=== PATIENT | female | born 1955 | race Caucasian/White ===

== ENCOUNTER → 2018-03-03 09:36 | Outpatient (CLI) | payer OTHER, SELFPAY ==
--- NOTE | 2018-03-03 | DI.RAD.S_ITS ---
PROCEDURE: XR HIP W PEL IF DONE RT 2V INDICATIONS: Pain in right hip TECHNIQUE: AP pelvis with lateral view of the right hip. COMPARISON: None. FINDINGS: Bones: No fractures or dislocations. There is mild axial joint space narrowing in the right hip with prominent bilateral periarticular subchondral sclerosis and cystic change. There is also prominent bilateral collar osteophytosis. Pelvic ring appears intact. No suspicious bony lesions. Soft tissues: The visualized bowel gas pattern is normal. No suspicious soft tissue calcifications. IMPRESSION: 1. Bilateral osteophytic changes with osteophytosis, subchondral sclerosis, and subchondral cystic changes with mild axial joint space narrowing in the right hip. Dictated by: Stephon Gonsalves M.D. on 03/03/2018 at 10:36 Approved by: Stephon Gonsalves M.D. on 03/03/2018 at 10:38
== END ==
PROVIDERS: Visit Provider Student in an Organized Health Care Education/Training Program
DX: M25.551 Pain in right hip (principal); M25.751 Osteophyte, right hip
CPT/HCPCS: 73502

== ENCOUNTER → 2019-07-02 14:05 | Outpatient (CLI) | payer MEDICARE, BC, SELFPAY | PROVIDERS: PCP Student in an Organized Health Care Education/Training Program; Referring Provider Orthopaedic Surgery; Visit Provider Student in an Organized Health Care Education/Training Program | DX: Z78.0 Asymptomatic menopausal state (principal) | CPT/HCPCS: 77080 ==

== ENCOUNTER → 2019-07-09 10:45 | Outpatient (CLI) | payer MEDICARE, BC, SELFPAY ==
--- NOTE | 2019-07-09 | DI.MG.S_ITS ---
BILATERAL DIGITAL SCREENING MAMMOGRAM 3D/2D WITH CAD: 07/09/2019 CLINICAL: Routine screening. Comparison is made to exams dated: 07/10/2017 mammogram, 01/13/2014 mammogram, and 05/27/2012 mammogram - Merged With [facility]. There are scattered fibroglandular elements in both breasts. Current study was also evaluated with a Computer Aided Detection (CAD) system. No significant masses, calcifications, or other findings are seen in either breast. There has been no significant interval change. IMPRESSION: NEGATIVE There is no mammographic evidence of malignancy. A 1 year screening mammogram is recommended. This exam was interpreted at Station ID: [id number]. NOTE: For mammograms, a report in lay terms will be sent to the patient. Approximately 15% of breast malignancies will not be visualized mammographically. In the management of a palpable breast mass, a negative mammogram must not discourage biopsy of a clinically suspicious lesion. Electronically Signed By: Althea willis/em:07/09/2019 14:52:11 letter sent: Normal Exam ACR BI-RADS Category 1: Negative [id number]
== END ==
PROVIDERS: PCP Student in an Organized Health Care Education/Training Program; Visit Provider Student in an Organized Health Care Education/Training Program
DX: Z12.31 Encounter for screening mammogram for malignant neoplasm of breast (principal)
CPT/HCPCS: 77063; 77067

== ENCOUNTER 2019-07-29 06:06 | Inpatient (IN) | payer MEDICARE, BC, SELFPAY ==
[2019-07-09 13:48] VITALS: BMI 25.6
[2019-07-29] VITALS (14 sets, daily range): BP systolic 103–147; BP diastolic 55–85; PULSE 45–88; RESP 10–19; TEMP 35.7–36.8; O2SAT 92–99; BMI 26.1
--- NOTE | 2019-07-29 | DI.RAD.S_ITS ---
PROCEDURE: XR HIP W PEL IF DONE RT 4V INDICATIONS: ANTERIOR HIP TECHNIQUE: 2 view(s) of the hip acquired. COMPARISON: , CR, XR HIP W PEL IF DONE RT 2V, 03/03/2018, 9:22. FINDINGS: Bones: Patient is status post right hip arthroplasty, with hardware components in expected positions. The hip joint appears congruent. The visualized bony structures appear intact. Soft tissues: Overlying postoperative changes are noted. No suspicious soft tissue densities. IMPRESSION: Normal alignment after right total hip arthroplasty. Dictated by: Abdulkadir Hazel M.D. on 07/29/2019 at 11:19 Approved by: Abdulkadir Hazel M.D. on 07/29/2019 at 11:19
--- NOTE | 2019-07-29 06:00 | DI.RAD.S_ITS ---
PROCEDURE: XR HIP W PEL IF DONE RT 2V INDICATIONS: post op films TECHNIQUE: AP pelvis and lateral view of the right hip acquired. COMPARISON: [facility], [place], XR HIP W PEL IF DONE RT 4V, 07/29/2019, 9:40. [facility], [place], XR HIP W PEL IF DONE RT 2V, 03/03/2018, 9:22. FINDINGS: Bones: Patient is status post right hip arthroplasty, with hardware components in expected positions. The hip joint appears congruent. The visualized bony structures appear intact. Soft tissues: Overlying postoperative changes are noted. No suspicious soft tissue densities. IMPRESSION: Normal alignment after right total arthroplasty. Dictated by: Abdulkadir Hazel M.D. on 07/29/2019 at 13:52 Approved by: Abdulkadir Hazel M.D. on 07/29/2019 at 13:53
[2019-07-29] MEDS: VANCOMYCIN 1,000 MG/200 ML PIGGYBACK 200 MG IV (07:08)
[2019-07-29] MEDS: LACTATED RINGERS 1,000 ML 42 ML IV ×2 (07:08→10:09)
[2019-07-29] MEDS: MELOXICAM 7.5 MG TABLET 15 MG PO (07:08)
[2019-07-29] MEDS: ACETAMINOPHEN 325 MG TABLET 975 MG PO ×3 (07:09→21:52)
[2019-07-29] MEDS: PREGABALIN 75 MG CAPSULE PO (07:09)
--- NOTE | 2019-07-29 07:45 | PM.PREOP ---
Pre-operative Note Interval Note History & Physical reviewed/Exam performed by Physician: Yes Changes to H&P: No
--- NOTE | 2019-07-29 07:46 | PM.OP.1 ---
Operative Date/Time/Diagnoses Date of procedure: 07/29/19 Time of procedure: 07:59 Pre-op diagnosis: right hip OA Post-op diagnosis: same Procedure & Clinicians Procedure: right total hip anterior approach Same procedure as scheduled: Yes Indications: The patient has had progressively worsening right hip pain with radiographic changes consistent with arthritis. Non-operative management has failed and the patient has requested total hip replacement. The risks, benefits and alternatives to surgery were discussed with the patient prior to proceeding. Risks discussed included, but were not limited to, failure to relieve pain, leg length discrepancy, dislocation, stiffness, infection, nerve damage, deep venous thrombosis, pulmonary embolism, stroke, coma, heart attack, permanent paralysis and , as well as the potential need for eventual revision of the prosthetic. Surgeon: Brenna Torres Gas Engine Operator Generators: Doug Mcarthur Anesthesia Type: General and Spinal Operative Notes Findings: severe right hip OA, good stability Closure Type: primary Specimen(s): none sent Prosthetic devices, grafts, tissues, transplants, or devices: torres and nephew 5 standard offset anthology, R3 56, 56 by -3 Estimated Blood Loss (mL): 250 Blood products transfused: none Procedure in detail: The patient was brought to the operating room. Patient was carefully positioned in the supine position. Time-out was performed and antibiotics were given. Anesthesia was induced. She was positioned in the on the table in order to allow hyperextension of the hip. The right lower extremity was prepped and draped in a standard sterile fashion. An anterior right hip incision was made 1 fingerbreadth lateral to the anterior superior iliac spine and extended distally towards the greater trochanter. Dissection was carried out through skin and subcutaneous tissues. The skin and subcutaneous tissues were carefully injected with Lidocaine with epi. Superficial hemostasis was achieved. The fascia over the tensor fascia leslye was defined and incised with a knife. Two Allis clamps were used to grasp the fascia. Tensor fascia leslye was retracted laterally. A gelpi retractor was placed. Dissection was carried out down along the neck. The circumflex vessels were carefully identified and cauterized with the Aqua Mantis. There was good visualization of the femoral neck. A Cobra was placed superior to the neck and the gluteus fibers were carefully stripped from that superior aspect of the capsule. A 2nd retractor was placed along the inferior aspect of the neck. The rectus insertion along the capsule was partially released. A 3rd retractor that was then gently placed over the rim of the acetabulum under the rectus. Capsule was carefully incised and released from the intertrochanteric line circumferentially superior to the mid sagittal line and inferiorly to the mid sagittal line until the lesser trochanter was palpable. A tag stitch was placed both in the superior and inferior limb of the capsular insertion. Along the acetabulum capsule was also released up to the mid sagittal 12:00 position. A portion of the labrum was resected. A saw was used to perform an osteotomy at the level of the intertrochanteric line and the junction of the superior femoral neck leaving approximately 1 finger breath of residual inferior neck above the lesser trochanter. A 2nd cut was made along the femoral neck at the base of the head and a napkin ring of neck was removed. Corkscrew was placed in the femoral head and the head was removed without difficulty. Retractors were then repositioned around the acetabulum. Residual labrum was resected and additional osteophytes were removed. A reamer that was 4 mm below the templated size was placed by hand in the acetabulum and it was reamed to centralize the acetabulum. It was then reamed up to 2 under the templated size and fluoroscopy was brought in to confirm the position of the reaming and depth of reaming. I reamed 1 under the anticipated size and touched the rim with line to line reaming. A trial cup was placed and noted that it was appropriately sized and fluoroscopy confirmed position and depth. The component was open and inserted without difficulty fluoroscopic imaging was used to confirm that the cup had been adequately seated and was well positioned. Neutral poly trial liner was placed. The cup was tested and noted to be stable. Attention was then directed to the femur. The femur was gently hyperextended additional capsular release was performed as needed in order to allow adequate visualization of the proximal femur with elevation of the femur. Patient was placed in a hyperextended slightly adducted position with maximum external rotation. Box osteotome was used to check for any residual neck as well as sclerotic bone along the trochanter. [place] pepper was placed in the femur. Additional broaching was performed. Canal finder was used to determine the alignment of the canal and position. Size 1 broach was placed. The canal was then appropriately broached up to the templated size as long as there was adequate stability of the broach and serial advancement of the broach without excessive impingement. Specific attention was directed at avoiding varus attempting to direct the distal aspect of the broach more anteriorly and avoiding excessive anteversion. Trial reduction showed acceptable range of motion, good stability, no posterior impingement, methodist of leg length and appropriate lateral shuck. I also hyperflexed the hip and checked that there was no impingement anteriorly and there was good stability with flexion, adduction and internal rotation. Final neutral poly was placed without difficulty. Marcaine and Exparel were injected.. The stem was placed without difficulty. Repeat trial reduction and x-ray showed acceptable overall position, length, and no evidence of the femoral fracture. Final head was placed. Wound was meticulously irrigated with normal saline. The hip was reduced and additional Exparel and Marcaine were injected. The capsule was closed with interrupted nonabsorbable sutures. The fascia of the tensor was closed with interrupted and running Vicryl. No drain was placed. Any tensor fascia leslye muscle that appeared to be contused or injured which was a minimal amount was carefully resected. Capsule around the tensor was injected with Exparel and Marcaine. The skin was closed with barbed stitches for the subcutaneous tissue and skin. We also used surgical glue. The wound was dressed sterilely. Brief Betadine soak was also used and was meticulously irrigated with normal saline. Patient was transferred to recovery room in satisfactory condition. Complications: none Post-operative Condition: stable Disposition: Acute Care Plan for aftercare: The patient will be maintained on a standard total hip replacement protocol with weight bearing as tolerated and anterior hip precautions. The patient will receive Aspirin and sequential compression devices for DVT prophylaxis. The patient will be discharged home when safe for the home environment.
[2019-07-29] MEDS: CEFAZOLIN 2 GM/100 ML FROZ.PIGGY IV ×3 (08:06→23:51)
[2019-07-29] MEDS: TRANEXAMIC ACID 1,000 MG VIAL 1000 MG INJ ×2 (08:08→11:00)
--- NOTE | 2019-07-29 08:39 | SUR.OPER ---
Head on pillow. Supine on fracture table with operative leg secured in traction. Other leg secured in padded stirrup. Arms across chest, secured with sheet.
[2019-07-29] MEDS: SODIUM CHLORIDE IRRIG SOLUTION 250 ML, EPINEPHrine 1 MG IRR (08:44)
[2019-07-29] MEDS: BUPIVACAINE LIPOSOME 266 MG/20 ML VIAL INJ (08:45)
[2019-07-29] MEDS: BUPIVACAINE 0.25% W/ EPI 30 ML VIAL 60 ML INJ (08:45)
[2019-07-29] MEDS: SODIUM CHLORIDE IRRIG SOLUTION 250 ML, POVIDONE-IODINE SPONGE STICKS 1 APPLIC IRR (08:46)
[2019-07-29] MEDS: LORazepam 2 MG/ML INJ 0.25 MG IV ×2 (11:55→12:06)
[2019-07-29] MEDS: fentaNYL 100 MCG/2 ML INJ 50 MCG IV ×2 (11:55→12:00)
--- NOTE | 2019-07-29 13:03 | SUR.OPER ---
Supine, head on pillow, torso on pink pad positioner. Iliac crest at flex of foot end of table. Gel roll under operative hip. Both arms secured on arm boards <90 degrees abduction. DELETE PREVIOUS NOTE, ENTERED WRONG POSITION
[2019-07-29] MEDS: LACTATED RINGERS 1,000 ML 125 ML IV ×2 (13:15→21:53)
--- NOTE | 2019-07-29 13:28 | PC.NURSE ---
1250 Pt arrived from PACU via bed. SL L AC, O2 2L nc on. Pt is awake, slightly sleepy. OX3, VS WNL. SCDs on BLE. 1330 Pt remains sleepy, Spouse at bedside. VS WNL, LR at 125 hr infusing. Pt able to move all extremities. Aquacel to ant hip surg site CDI. Ice to site.
--- NOTE | 2019-07-29 14:33 | PC.NURSE ---
1330 pt arrived to room 205 via stretcher from ED. Pt a&o x 4. Spouse at bedside. Denies allergies. SL to L fa. O2 1.5 Lnc. Pt states had a temp of 104.0 via ear probe at home this AM. Spouse marked the reddedned area on left side abd/thigh. 1430 Dr Frausto in to examine Pt.
--- NOTE | 2019-07-29 15:48 | PT.IIE ---
Current Diagnoses Bilateral primary osteoarthritis of hip (07/29/19) Pain in right hip (07/29/19) Surgery Performed Operation Date: 07/29/19 07:45 Actual Procedures p Total Hip Arthroplasty/Anterior Approach(Right) - Brenna Vargas MD Surgical History (Last Updated 07/09/19 @ 14:43 by Melissa Lawson, RN) History of colonoscopy with polypectomy (Acute) History of surgical removal of pilonidal cyst (Acute) Hx of sinus surgery (Acute) S/P tonsillectomy and adenoidectomy (Acute) Medical History (Last Updated 07/09/19 @ 14:43 by Melissa Lawson RN) Anxiety (Acute) Back pain (Acute) BCC (basal cell carcinoma), chest (Acute ~03/2019) Bronchitis (Acute) Functional heart murmur (Acute) Hidradenitis suppurativa (Acute) HLD (hyperlipidemia) (Acute) Lentigo maligna (Acute ~2002) Melanoma (Acute ~12/2018) Migraines (Acute) Osteoarthritis (Acute) Retinal tear of right eye (Acute) Physical Therapy Inpatient Evaluation/Re-Eval M1 PT/OT-IP Prior Functional Status Start: 07/29/19 14:21 Freq: NEEDED Status: Active Protocol: Document 07/29/19 15:16 AW (Rec: 07/29/19 15:48 AW [id number]) Medical Review Prior Functional Status Medical History Reviewed Yes Diet/Fluid Consistency Regular Communication Able to make needs known, no known deficits Mobility and Gait Pt was independent with all functional mobility without need for AD. She was able to walk 1-2 miles/day on paved surfaces. Activities of Daily Living and IADL's Independent, though occasionally required assistance to don shoes. Social History Household Members spouse Living Arrangements House Number of Floors (Floors) 3 or More Floors Number of Stairs To Enter/Railing? 0 [place]. Pt is able to live on the main floor until able to climb stairs. There are 16 stairs with left rail ascending to the second floor. Home Environment Standard Height Toilet,Walk in Shower,Tub/Shower Home Equipment Front Wheel Walker,Quad Cane, Straight Cane,Crutches,Raised Toilet Seat w/Armrests,Shower Seat with Backrest,Hand Held Shower Employment Status Retired Additional Social History Comment Pt and spouse are both retired . is able and available to assist as needed. M2 PT-IP Current Condition Start: 07/29/19 14:21 Freq: NEEDED Status: Active Protocol: Document 07/29/19 15:16 AW (Rec: 07/29/19 15:48 AW [id number]) Physical Therapy Current Condition Current Condition Evaluation Date 07/29/19 Treatment Diagnosis s/p R BRODIE with anterior approach, impaired mobility Precautions Anterior Hip Precautions No Hip Extension,No Hip External Rotation Weight Bearing Status Weight Bearing Status Weight Bear as Tolerated M3 PT-IP Subjective Start: 07/29/19 14:21 Freq: NEEDED Status: Active Protocol: Document 07/29/19 15:16 AW (Rec: 07/29/19 15:48 AW [id number]) Subjective Physical Therapy Visit Type Type Initial Evaluation Visit Start Time 14:42 Visit Stop Time 15:14 Total Visit Minutes 32 Number of PARTS ORDER AND STOCK CLERK Visits 0 Physical Therapy Visit Comments Patient Comments Pt is very sleepy but willing to work with PT Patient Goals Pt hopes to discharge home with the assistance of her spouse Therapy Pain Assessment Pain When Pain Assessed At Rest Pain Present Pain Present Pain Reported Location r hip Intensity 5 Scale Used Numeric (1 - 10) Pain Management Techniques Apply Cold,Re-positioning, Timing of Activity with Medications M4 PT-IP Mobility and Gait Start: 07/29/19 14:21 Freq: NEEDED Status: Active Protocol: Document 07/29/19 15:16 AW (Rec: 07/29/19 15:48 AW [id number]) PT-Bed Mobility Assessment Rolling Type of Rolling Roll to Right Level of Assist Contact Guard Assistance Supine to Sit Supine to Sit Contact Guard Assistance, Minimal Assistance Sit to Supine Sit to Supine Minimal Assistance Scooting Scooting to Edge of Bed Contact Guard Assistance PT-Transfer Assessment Sit to and From Stand Sit to and from Stand Contact Guard Assistance, Minimal Assistance Equipment Transfer Assistive Device Gait Belt,Front Wheeled Walker Orthotic/Prosthetic Devices or Brace: No Comments Mobility Comments Pt required CGA to min assist for bed mobility and sit <> stand transfer, including verbal cues for hand placement /safe use of FWW. BP in sitting was 122/70. Pt complained of increased lightheadedness and nausea in standing. BP was 101/67. Symptoms did not resolve after 1 minute standing, so pt was returned to supine with min assist. BP recovered to 120/70 within 2 minutes. Pt left in bed with NAC, call light and table within reach, at bedside. PT-Balance Assessment Sitting Balance and Reactions Static Sitting Balance Ability Good Dynamic Sitting Balance Ability Good Standing Balance and Reactions Static Standing Balance Ability Fair Device Used FWW M5 PT-IP Objective Assessments Start: 07/29/19 14:21 Freq: NEEDED Status: Active Protocol: Document 07/29/19 15:16 AW (Rec: 07/29/19 15:48 AW [id number]) Orientation Orientation/Cognition Level of Alertness Confusional State Orientation Name,Month,Place,Situation Language Function Ability No Deficits Noted Safety Awareness Understands Safety Issues Memory Description No Deficits Noted Comments Pt oriented except to date. She is an accurate historian, with spouse validating her responses. Gross Range of Motion Upper Extremity ROM Assessment Within Functional Limits Lower Extremity ROM Assessment Right Impaired Strength Upper Extremity Strength Assessment Within Functional Limits Lower Extremity Strength Assessment Right Impaired Comments Strength Comments Pt able to lift right leg into bed. No resistive testing undertaken on RLE. LLE grossly 4+/5. Coordination Assessment Gross Coordination Gross Coordination WNL Sensation Assessment Sensation Gross Sensation WNL Comments Sensation Comments No deficits on exam M6 PT-IP Treatment Start: 07/29/19 14:21 Freq: NEEDED Status: Active Protocol: Document 07/29/19 15:16 AW (Rec: 07/29/19 15:48 AW [id number]) Physical Therapy Treatment Exercises Exercises Ankle Pumps,Gluteal Sets,Quad Sets,Heel Slides Education Education Provided Precautions,Weight Bearing Status,Post-Op Packet,Safety Other Treatments Other Treatment Performed Heel slides performed passively. Educated pt on PT plan of care, post-op exercises, anterior hip precautions, and safe use of FWW. M7 PT-IP Assessment and Plan Start: 07/29/19 14:21 Freq: NEEDED Status: Active Protocol: Document 07/29/19 15:16 AW (Rec: 07/29/19 15:48 AW [id number]) PT Summary Assessment and Plan Potential Rehabilitation Potential Good Status of Condition at Evaluation Evolving Summary Impairments Pain,Strength,Balance,Bed Mobility,Transfers,Gait, Activity Tolerance Assessment Summary Pt is a 64 yo woman seen on POD0 following R BRODIE with anterior approach. PLOF: Independent in all regards. Shares home with spouse who is also retired and available to assist. CLOF: Pt seen hours after surgery, very sleepy and with pain 5/10 in right hip. She tolerated bed mobility and needed min assist at most for bed mobility and sit to stand . She became diaphoretic in standing, complaining of lightheadedness and nausea. SpO2 was maintained 90-95% on 1L supplemental O2 via NC. SBP dropped 21 points in standing . Symptoms did not resolve within a few minutes, so pt was returned to supine and left with NAC, spouse at bedside, call light and table within reach. Goals Bed Mobility Goal Standby Assistance Transfer Goal Standby Assistance Gait Goal Standby Assistance Gait Distance 100 feet Frequency of Treatment Frequency Of Treatment Twice a Day Treatment Plan Physical Therapy Treatment Plan Bed Mobility Training,Transfer Training,Gait Training, Therapeutic Exercise,Balance Retraining,Post Op Education, Discharge Planning,Hot or Cold Pack,Neuromuscular Re-ed, Coordination Retraining,Manual Therapy Other Recommendations and Next Treatment gait training. monitor BP Focus Recommendations To Nursing Amount of Assist Needed 1 Person Assist Discharge Recommendations PT Discharge Recommendations Home with / Assist, Outpatient PT
[2019-07-29] MEDS: ONDANSETRON 4 MG/2 ML INJ IV (17:08)
[2019-07-29] MEDS: OXYCODONE IR 5 MG TABLET PO ×2 (17:09→23:51)
[2019-07-29] MEDS: ASPIRIN EC 81 MG TABLET PO (21:52)
[2019-07-29] MEDS: DOCUSATE 100 MG CAPSULE PO (21:52)
[2019-07-29] MEDS: IBUPROFEN 400 MG TABLET PO (21:52)
--- NOTE | 2019-07-29 22:44 | PC.NURSE ---
93%RA, pt ambulated, 1PA to the BR. Dressing cdi, CMS+. scds on. IVF. pt drinking plenty of fluids. voiding without difficulty. pain controlled with oxycodone and tylenol. call light in reach, bed alarm active.
[2019-07-29] MEDS: hydrOXYzine pamoate 25 MG CAPSULE PO (23:53)
[2019-07-30 01:02] VITALS: BP 134/79; PULSE 70; RESP 16; TEMP 36.8; O2SAT 96
[2019-07-30 05:15] VITALS: BP 133/78; PULSE 98; RESP 16; TEMP 36.6; O2SAT 95
[2019-07-30] MEDS: ACETAMINOPHEN 325 MG TABLET 975 MG PO (05:16)
[2019-07-30] MEDS: OXYCODONE IR 5 MG TABLET PO (05:17)
[2019-07-30 06:18] LABS: Hematocrit 34.6 % (36-46); Hemoglobin 11.8 g/dL (12.0-16.0)
--- NOTE | 2019-07-30 07:36 | PM.DS.1 ---
History of Present Illness History of Present Illness Date Patient Seen: 07/30/19 Time Patient Seen: 07:36 Chief complaint: [id number] Narrative: Patient's pain is mild to moderate. No fever chills. No nausea vomiting. Patient's is home to assist her. She does have steps in her house but will be staying down stairs until she can safely do steps at home. She does wish to go home today if safe to do so. Discharge Providers Provider Date of admission: 07/29/19 06:06 Discharge Date: 07/30/19 Primary care physician: Savannah Ortega PA-C Consults: 07/29/19 06:00 Consult to Anesthesiology Routine Comment: Consulting Provider: Anesthesiologist Reason for consultation: Regional block for post operative pain control 07/29/19 13:17 Consult to Discharge Planning Routine Comment: Consult to Physical Therapy Evaluate & Treat Comment: Physician Instructions: post op BRODIE protocol Consult to Respiratory Therapy Evaluate & Treat Comment: Physician Instructions: Evaluate and treat Discharge provider: Hao Gómez PA-C Summary Hospital Course Discharge Diagnosis: Status post right total hip arthroplasty secondary to severe right hip DJD Hospital Course: Patient admitted to the hospital for right total hip arthroplasty. Patient failed a long period of conservative treatment as outpatient. Patient admitted to the hospital and consented to the same. Patient taken the operating room underwent right total hip arthroplasty, anterior approach. Patient back in her room recovering well as in stable condition. Status at Discharge Cognitive/behavioral status at discharge: at baseline, oriented Functional status at discharge: uses cane/walker Overall status at discharge: patient is progressing back to baseline Time Spent with Patient Time spent: Less than 30 minutes Exam Vital Signs (past 8 hours): - 07/30/19 01:02 07/30/19 05:15 Temperature 98.2 F 97.9 F Pulse Rate 70 98 H Respiratory Rate 16 16 Blood Pressure 134/79 133/78 Pulse Oximetry 96 95 Oxygen Delivery Method Nasal Cannula Oxygen Flow Rate 0 Narrative Exam Narrative: Patient resting in bed in no apparent distress. Right hip dressing is clean, dry and intact. Right lower extremity is warm and dry. SCDs on and functioning. Motor functions intact distal right lower extremity. Sensation grossly intact to light touch. Objective Labs Result Diagrams: 07/30/19 05:50 Labs: Laboratory Results - last 24 hr 07/30/19 05:50 Hgb 11.8 L Hct 34.6 L Discharge Plan Discharge Plan Patient Disposition: Home Discharge comment: home after PT today Discharge Med Rec/Prescriptions Prescriptions: Continued alprazolam 0.25 mg Tablet 0.25 - 0.5 mg PO DAILY PRN (Reason: Anxiety) RF: 0 zolpidem 6.25 mg Tablet,Ext Release Multiphase 6.25 mg PO BEDTIME PRN (Reason: Sleep) RF: 0 Discontinued meloxicam 15 mg Tablet 15 mg PO DAILY PRN (Reason: Pain) RF: 0 ibuprofen 200 mg Tablet 400 mg PO BEDTIME RF: 0 Follow up/Referrals: Hao Gómez PA-C [[employer]] - (1 wk) Savannah Ortega PA-C [Primary Care Provider] - Provider Discharge Instructions Diet: Diet as Tolerated Activity: Weightbearing as tolerated, anterior hip precautions Cold/Heat Therapy: Apply ice to the hip as needed Other treatments: Ibuprofen 400 mg every 4 hours, Tylenol 500 mg every 4 hours, aspirin 81 mg b.i.d. Skin/Wound/Dressing Care Report to your healthcare provider any signs of infection, such as:: chills, fever, increased pain, unusual drainage and unusual redness Dressing: Keep dressing clean and dry Discharge Data Primary Care Provider: Savannah Ortega Quality VTE Deep Vein Thrombosis/Pulmonary Embolism Present on Admission: No
[2019-07-30 08:00] VITALS: BP 121/73; PULSE 59; RESP 14; TEMP 36.6; O2SAT 97
[2019-07-30] MEDS: ASPIRIN EC 81 MG TABLET PO (08:23)
[2019-07-30] MEDS: DOCUSATE 100 MG CAPSULE PO (08:23)
--- NOTE | 2019-07-30 09:22 | CM.DANOTE ---
DCP Assessment: EMR reviewed: Patient is a 64 yr old female who was admitted for Rt BRODIE preformed by . Patients PCP is Dr. Ortega. CM met with patient at bedside and explained CM/RN Role. patient was alert and oriented and is completely I with ADL's at base line. Patient would like to return home with Joaquín at d/c. patient has OP PT set up for next week wiht [facility].patient has a FWW and shower chair at home. Insurance: 1st payer: Medicare 2nd payer: [facility] out of [facility]. Plan: To d/c home with assistance form Joaquín and to attend OT PT twice a week starting on Sunday08/03/2019. No identified D/c planning needs noted at this time. Josefina Vargas RN Discharge Planning/Care Management Advanced directive, confirm from FAMILY Start: 07/29/19 13:38 Freq: Q24H Status: Active Protocol: Document 07/29/19 13:38 HCW (Rec: 07/29/19 18:41 HCW [id number]) Advance Directive, confirm on record Time 16:10 Person contacted patient Copy received No CM Discharge Assessment Start: 07/30/19 09:20 Freq: Status: Active Protocol: Document 07/30/19 09:20 HS (Rec: 07/30/19 09:21 HS [id number]) Discharge Planning Assessment Assigned Activities Concierge Josefina Vargas RN DPOA/Assigned Designee Name Joaquín Hall Contact Information [phone] Advance Directives? Yes Advance Directives on File No History Provided By Patient Has Patient been admitted in last 30 No days? Prior Living Arrangements House Household Members spouse Type of transporation used prior to Drives own vehicle admit Independent with ADL's Yes Is patient alert and oriented? Yes Caregiver for Another No Patient/Family Preference OP PT Therapy Discharge Plan Home Whiteboard Updated in Patient Room with Yes name and ext. # of Activities Concierge Review Status In Process Next Review Type Continued Stay Review Pre-Anesthesia Assessment Start: 07/09/19 13:48 Freq: Status: Active Protocol: Document 07/09/19 13:48 CAB (Rec: 07/09/19 14:44 CAB [id number]) Pre-Anesthesia Assessment Patient Also Known As (AKA) Janey Patient Information Reviewed Via Phone Assessment Assessment Completed With Patient Diagnostic Results BMP/CMP,CBC,EKG Comment Outside labs/EKG scanned to record Primary Care Provider Savannah Ortega Seen Specialist in Last 12 Months Yes Specialist Seen Oncology Consultant,General surgeon, Orthopedist Comment PCP pre-op 06/25/19 scanned to record Primary Language Andorran Superintendent Terminal Required No Height 165.1 cm Weight 69.853 kg Body Mass Index (BMI) 25.6 Hearing Ability Normal Visual Assist Glasses Dentition Type Teeth, Natural Present,Teeth, Missing Barriers to Learning None Hx Anesthesia Reactions Yes: Bradycardia w/colonoscopy Hx Family Anesthesia Reaction No Hx Malignant Hyperthermia No Hx Blood Transfusions No Anesthesia Review Requested No alcohol intake current alcohol intake frequency 0-2 drinks per day Smoking Status Former smoker Tobacco type cigarettes how long ago did patient quit smoking Quit for good 5 years Substance Use Type other Comment CBD Oil, edibles Pain Present Pain Reported Musculoskeletal Symptoms Abnormal Gait,Back Pain, Difficulty Walking,Joint Pain, Limited Range of Motion History of Falling (Recent or History of No ) Patient is completely paralyzed or No completely immobile Mental Status Oriented to own ability Is patient on oxygen? No Does patient have PINON/SOB No Hx Sleep Apnea No Currently Taking a Beta Valerie No Can You Climb a Flight of Stairs Without Yes SOB Hx Chest Pain No Hx SOB No Hx Syncope or Dizziness No Anti-Coagulant Therapy No Has a Emergency Communications Dispatcher No Cardiac Testing No Hx Pacemaker/ICD No Pacemaker Rep Required? No Cardiac Clearance Received Not Applicable Diet Type At Home Regular dysphagia No Urinary Catheter Present No Hx Urinary Self Catheterization No Diabetes No HgbA1C 5.1 Date 06/25/19 Patient No Lactating No Hx Drug Resistant Organism No Presence of External or Internal Medical No Devices Have you traveled outside the [facility] in the last 30 days? Marital Status Lives With spouse Prior Living Arrangements House Number of Floors (Floors) 3 or More Floors Support System Spouse Does the Patient Have Assistance After Yes Surgery Comment Pt not advised on length of stay per surgeon's office Feels Safe in Current Environment Yes Been Physically Hurt or Threatened By a No Person in Current Environment Do you have thoughts of harming yourself None or others? Are you currently considering suicide? No Do you have a plan to hurt yourself or No Plan others? Do You Have Any Spiritual Beliefs That No May Affect Your HC Choices? Do You Have Any Cultural Practices That No May Affect Your HC Choices? Comment Baptist Who Can We Speak to About Patient's Care Family, friends Identifying Code for Release of Patient Declines to issue Information Health Care Proxy/Next of Kin Joaquín () Health Care Proxy Emergency Contact Name Joaquín () Emergency Contact Advance Directives? Yes Advance Directives on File No Requested Patient Bring Advanced Yes Directives DOS Power of Manufacturing Test Engineer Yes Power of Manufacturing Test Engineer Name Joaquín () Power of Manufacturing Test Engineer PAC Instructions Do not shave/clip surgical site,Durable medical equipment ,Medications to take/avoid, Nasal antibiotic,No ETOH/ petroleum product on skin DOS, NPO,Post-op transportation,Pre -surgical wash,Sturdy shoes/ comfortable clothes,Do not bring valuables and remove jewelry
--- NOTE | 2019-07-30 09:30 | PT.IPTN ---
Current Diagnoses Bilateral primary osteoarthritis of hip (07/29/19) Pain in right hip (07/29/19) Surgery Performed Operation Date: 07/29/19 07:45 Actual Procedures p Total Hip Arthroplasty/Anterior Approach(Right) - Brenna Vargas MD Physical Therapy Treatment Note M2 PT-IP Current Condition Start: 07/29/19 14:21 Freq: NEEDED Status: Discharge Protocol: Document 07/29/19 15:16 AW (Rec: 07/29/19 15:48 AW [id number]) Physical Therapy Current Condition Current Condition Evaluation Date 07/29/19 Treatment Diagnosis s/p R BRODIE with anterior approach, impaired mobility Precautions Anterior Hip Precautions No Hip Extension,No Hip External Rotation Weight Bearing Status Weight Bearing Status Weight Bear as Tolerated M3 PT-IP Subjective Start: 07/29/19 14:21 Freq: NEEDED Status: Discharge Protocol: Document 07/30/19 09:30 GGD (Rec: 07/30/19 11:52 GGD [email or web address]) Subjective Physical Therapy Visit Type Type Treatment Note Visit Start Time 09:08 Visit Stop Time 09:32 Total Visit Minutes 24 Number of MEDICAL DATA ANALYST Visits 1 Physical Therapy Visit Comments Patient Comments Pt willing to work with therapy. Therapy Pain Assessment Location r hip Intensity 5 Scale Used Numeric (1 - 10) M4 PT-IP Mobility and Gait Start: 07/29/19 14:21 Freq: NEEDED Status: Discharge Protocol: Document 07/30/19 09:30 GGD (Rec: 07/30/19 11:52 GGD [email or web address]) PT-Bed Mobility Assessment Sit to Supine Sit to Supine Standby Assistance PT-Transfer Assessment Sit to and From Stand Sit to and from Stand Standby Assistance,Contact Guard Assistance Equipment Transfer Assistive Device Gait Belt,Front Wheeled Walker Orthotic/Prosthetic Devices or Brace: No Transfers Transfer Destination Bed,Toilet Gait Assessment Gait Gait Assistance Required: Standby Assistance Distance (Feet) 170 Able to Maintain Weight Bearing Status Yes During Gait Assistive Devices Assistive Device Gait Belt,Front Wheeled Walker Orthotic/Prosthetic Devices or Brace: No Gait Deviations General Gait Pattern Decreased Stride Length, Decreased Feet Clearance Factors Limiting Gait Function Factors Limiting Gait Function Limited Range of Motion,Pain M5 PT-IP Objective Assessments Start: 07/29/19 14:21 Freq: NEEDED Status: Discharge Protocol: Document 07/29/19 15:16 AW (Rec: 07/29/19 15:48 AW [id number]) Orientation Orientation/Cognition Level of Alertness Confusional State Orientation Name,Month,Place,Situation Language Function Ability No Deficits Noted Safety Awareness Understands Safety Issues Memory Description No Deficits Noted Comments Pt oriented except to date. She is an accurate historian, with spouse validating her responses. Gross Range of Motion Upper Extremity ROM Assessment Within Functional Limits Lower Extremity ROM Assessment Right Impaired Strength Upper Extremity Strength Assessment Within Functional Limits Lower Extremity Strength Assessment Right Impaired Comments Strength Comments Pt able to lift right leg into bed. No resistive testing undertaken on RLE. LLE grossly 4+/5. Coordination Assessment Gross Coordination Gross Coordination WNL Sensation Assessment Sensation Gross Sensation WNL Comments Sensation Comments No deficits on exam M6 PT-IP Treatment Start: 07/29/19 14:21 Freq: NEEDED Status: Discharge Protocol: Document 07/30/19 09:30 GGD (Rec: 07/30/19 11:52 GGD [email or web address]) Physical Therapy Treatment Exercises Exercises Ankle Pumps,Gluteal Sets,Quad Sets Education Education Provided Precautions M7 PT-IP Assessment and Plan Start: 07/29/19 14:21 Freq: NEEDED Status: Discharge Protocol: Document 07/30/19 09:30 GGD (Rec: 07/30/19 11:52 GGD [email or web address]) PT Summary Assessment and Plan Summary Assessment Summary Pt improving with mobility. She was able to prgress gait distance. She needed decrease assistance with bed mobility. Pt safe for home D/c when medically stable. Frequency of Treatment Frequency Of Treatment Twice a Day Treatment Plan Physical Therapy Treatment Plan Bed Mobility Training,Transfer Training,Gait Training, Therapeutic Exercise,Balance Retraining,Post Op Education, Discharge Planning,Hot or Cold Pack,Neuromuscular Re-ed, Coordination Retraining,Manual Therapy Recommendations To Nursing Amount of Assist Needed 1 Person Assist Discharge Recommendations PT Discharge Recommendations Home with Assistance, Outpatient PT
== END 2019-07-30 10:16 | disposition home or self-care (01) | DRG 470 ==
PROVIDERS: Admitting Provider Orthopaedic Surgery; PCP Student in an Organized Health Care Education/Training Program; Visit Provider Orthopaedic Surgery
PROC: 0SR902A Replacement of Right Hip Joint with Metal on Polyethylene Synthetic Substitute, Uncemented, Open Approach (ICD-10-PCS; CPT 27130; principal; 2019-07-29 07:45)
DX: M16.11 Unilateral primary osteoarthritis, right hip (principal)
CPT/HCPCS: 36415; 73502; 73503; 76000; 85014; 85018; 97116; 97161; 97530; C1776; C9290; J0171; J0690; J1100; J1170; J2060; J2250; J2405; J2704; J3010

== ENCOUNTER → 2020-10-10 12:08 | Outpatient (CLI) | payer MEDICARE, OTHER, SELFPAY ==
[2019-07-29 13:32] VITALS: BMI 26.1
[2020-10-10 12:36] LABS: COVID19 -Nasal RAPID Negative (Negative)
== END ==
PROVIDERS: PCP Student in an Organized Health Care Education/Training Program; Visit Provider Physician Assistant
DX: Z20.828 Contact with and (suspected) exposure to other viral communicable diseases (principal)
CPT/HCPCS: 87635

== ENCOUNTER → 2020-10-26 16:57 | Outpatient (CLI) | payer MEDICARE, OTHER, SELFPAY ==
[2019-07-29 13:32] VITALS: BMI 26.1
[2020-10-26 18:50] LABS: COVID19 -Nasal RAPID Negative (Negative)
== END ==
PROVIDERS: PCP Student in an Organized Health Care Education/Training Program; Visit Provider Physician Assistant
DX: Z20.822 Contact with and (suspected) exposure to COVID-19 (principal)
CPT/HCPCS: 87635

== ENCOUNTER → 2021-09-06 16:41 | Outpatient (CLI) | payer MEDICARE, OTHER, SELFPAY ==
[2019-07-29 13:32] VITALS: BMI 26.1
--- NOTE | 2021-09-06 | DI.MG.S_ITS ---
BILATERAL DIGITAL SCREENING MAMMOGRAM 3D/2D WITH CAD: 09/06/2021 CLINICAL: Routine screening. Comparison is made to exams dated: 07/09/2019 mammogram - [facility], 07/10/2017 mammogram, and 01/13/2014 mammogram - [facility]. There are scattered fibroglandular elements in both breasts. Current study was also evaluated with a Computer Aided Detection (CAD) system. No significant masses, calcifications, or other findings are seen in either breast. There has been no significant interval change. IMPRESSION: NEGATIVE There is no mammographic evidence of malignancy. A 1 year screening mammogram is recommended. This exam was interpreted at Station ID: [id number]. NOTE: For mammograms, a report in lay terms will be sent to the patient. Approximately 15% of breast malignancies will not be visualized mammographically. In the management of a palpable breast mass, a negative mammogram must not discourage biopsy of a clinically suspicious lesion. Electronically Signed By: Al Israel M.D., jr/em:09/07/2021 11:12:38 letter sent: Normal Exam ACR BI-RADS Category 1: Negative 3341F
== END ==
PROVIDERS: PCP Family Medicine; Referring Provider Family Medicine; Visit Provider Family Medicine
DX: Z12.31 Encounter for screening mammogram for malignant neoplasm of breast (principal)
CPT/HCPCS: 77063; 77067

== ENCOUNTER → 2021-12-15 09:43 | Outpatient (CLI) | payer MEDICARE, OTHER, SELFPAY ==
[2019-07-29 13:32] VITALS: BMI 26.1
--- NOTE | 2021-12-15 09:46 | DI.MRI.S_ITS ---
PROCEDURE: MR LUMBAR SPINE WO CON INDICATIONS: Spinal stenosis, lumbar region TECHNIQUE: Noncontrast sagittal T1 spin echo and T2 fast echo, sagittal STIR, axial T1 and T2 fast spin echo through the lumbar spine. In cases with scoliosis, additional coronal T2 fast spin echo may be performed. COMPARISON: [facility] [place], CR, XR LUMBAR SPINE 2 OR 3 VIEWS, 12/13/2018, 11:14. FINDINGS: Image quality: Excellent. Alignment and Curvature: There is normal bony alignment. Bone Marrow: Marrow is of normal overall signal. No acute vertebral body compression fractures. Spinal Cord: Conus medullaris terminates at the L1-L2 level. Visualized cord demonstrates normal signal and size. Paraspinous Soft Tissues: No paravertebral masses. T12-L1: Mild disc bulge. Facet and ligament hypertrophy. No significant canal stenosis or foraminal stenosis. L1-L2: Minimal disc bulge. Facet hypertrophy. No canal stenosis or foraminal stenosis. L2-L3: Posterior annulus tear associated with disc bulge. Facet hypertrophy. Borderline canal stenosis. No foraminal stenosis. L3-L4: Posterior annulus tear plus diffuse disc bulge. Superimposed small right posterior free disc fragment which extends superior to the disc space in the right lateral recess and is present in the medial aspect of the right foramen. It impinges on the right L3 nerve root. There is moderate central canal stenosis. The left foramen is patent. L4-L5: Disc bulge. Facet hypertrophy. Moderate to severe canal stenosis. Mild bilateral foraminal stenosis. L5-S1: Bilateral facet hypertrophy. No canal stenosis or foraminal stenosis. IMPRESSION: 1. Multilevel facet arthropathy. 2. Central canal stenosis is moderate at L3-L4 and moderate to severe at L4-L5. 3. At L3-L4, there is a small free disc fragment in the right lateral recess above the disc level and in the medial right foramen as well, impinging on the right L3 nerve root. Dictated by: Todd Lara M.D. on 12/15/2021 at 11:48 Approved by: Todd Lara M.D. on 12/15/2021 at 11:55
== END ==
PROVIDERS: PCP Family Medicine; Referring Provider Orthopaedic Surgery; Visit Provider Orthopaedic Surgery
DX: M47.816 Spondylosis without myelopathy or radiculopathy, lumbar region; M47.817 Spondylosis without myelopathy or radiculopathy, lumbosacral region; M48.061 Spinal stenosis, lumbar region without neurogenic claudication
CPT/HCPCS: 72148

== ENCOUNTER → 2022-10-30 07:55 | Outpatient (CLI) | payer MEDICARE, OTHER, SELFPAY ==
[2019-07-29 13:32] VITALS: BMI 26.1
--- NOTE | 2022-10-30 | DI.MG.S_ITS ---
BILATERAL DIGITAL SCREENING MAMMOGRAM 3D/2D WITH CAD: 10/30/2022 CLINICAL: Routine screening. Comparison is made to exams dated: 09/06/2021 mammogram, 07/09/2019 mammogram - [facility], and 07/10/2017 mammogram - [facility]. There are scattered areas of fibroglandular density in both breasts (category b / 25%-50% glandular tissue). Current study was also evaluated with a Computer Aided Detection (CAD) system. No significant masses, calcifications, or other findings are seen in either breast. There has been no significant interval change. IMPRESSION: NEGATIVE There is no mammographic evidence of malignancy. A 1 year screening mammogram is recommended. Based on the Tyrer Cuzick model (a risk assessment model) the patient's lifetime risk is 5.3% and her 10 year risk is 2.9%. According to the ACR, ACS, and NCCN guidelines, an annual breast MRI exam along with mammogram is recommended if the patient's lifetime risk is 20% or greater. This exam was interpreted at Station ID: [id number]. NOTE: For mammograms, a report in lay terms will be sent to the patient. Approximately 15% of breast malignancies will not be visualized mammographically. In the management of a palpable breast mass, a negative mammogram must not discourage biopsy of a clinically suspicious lesion. Electronically Signed By: Boo bond/em:10/30/2022 11:19:55 letter sent: Normal Exam ACR BI-RADS Category 1: Negative 3341F
== END ==
PROVIDERS: PCP Family Medicine; Referring Provider Family Medicine; Visit Provider Family Medicine
DX: Z12.31 Encounter for screening mammogram for malignant neoplasm of breast (principal)
CPT/HCPCS: 77063; 77067

== ENCOUNTER → 2023-01-17 07:22 | Outpatient (CLI) | payer MEDICARE, OTHER, SELFPAY ==
[2019-07-29 13:32] VITALS: BMI 26.1
[2023-01-17 08:15] LABS: Influenza A - CEPHEID Flu A NEGATIVE (NEGATIVE); Influenza B - CEPHEID Flu B NEGATIVE (NEGATIVE); Respiratory Syncytial Virus Negative (Negative)
[2023-01-17 08:16] LABS: COVID-19 CEPHEID 4-PLEX PCR Negative (Negative)
== END ==
PROVIDERS: PCP Family Medicine; Visit Provider Nurse Practitioner Family
DX: J06.9 Acute upper respiratory infection, unspecified (principal)
CPT/HCPCS: 0241U

== ENCOUNTER → 2023-03-05 09:47 | Outpatient (CLI) | payer MEDICARE, OTHER, SELFPAY ==
[2019-07-29 13:32] VITALS: BMI 26.1
--- NOTE | 2023-03-05 10:01 | DI.DEXA.S_ITS ---
Bone Density Report Name: MARITZA CUTLER Age: 67 Sex: Female Ethnicity: White Date of : 1955 Indication: postmenopausal; screening for osteoporosis; Referring Provider: TEMO ENCARNACION Study: Bone densitometry was performed. Exam Date: March 05, 2023 Accession number: [id number] Bone Density: Region BMD T-score Z-score Classification AP Spine(L1, L2, L3) 1.156 1.3 3.2 Normal Total Forearm (Left) 0.593 0.3 2.1 Normal 1/3 Forearm (Left) 0.680 -0.2 1.7 Normal UD Forearm (Left) 0.445 0.0 1.4 Normal World Health Organization criteria for BMD impression classify patients as: Normal (T-score at or above -1.0), Osteopenia (T-score between -1.0 and -2.5), or Osteoporosis (T-score at or below -2.5). Impression: The patient has normal bone mass. Discussion: LOW RISK OF FRACTURE; BONE DENSITY IS WELL ABOVE THE MINIMUM DESIRABLE LEVEL AND ABOVE AVERAGE FOR AGE AND SEX AT ALL SKELETAL SITES TESTED. This person's bone density is above expected limits for age and sex. This is rarely clinically significant, but should be pursued if there are significant musculoskeletal complaints. The patient should follow a healthful lifestyle (good nutrition with adequate calcium and vitamin D, and appropriate weight-bearing exercise). Follow-Up: Consider repeating this study in 5 years or sooner if there is some new clinical indication. Reported by: ALEA GUERRIER M.D. on 03/05/2023 10:13:00 AM.
== END ==
PROVIDERS: PCP Family Medicine; Referring Provider Family Medicine; Visit Provider Family Medicine
DX: Z78.0 Asymptomatic menopausal state (principal)
CPT/HCPCS: 77080

== ENCOUNTER → 2023-11-09 13:02 | Outpatient (CLI) | payer MEDICARE, OTHER, SELFPAY ==
[2019-07-29 13:32] VITALS: BMI 26.1
--- NOTE | 2023-11-09 13:04 | DI.MG.S_ITS ---
BILATERAL DIGITAL SCREENING MAMMOGRAM 3D/2D WITH CAD: 11/09/2023 CLINICAL: Routine screening. Comparison is made to exams dated: 10/30/2022 mammogram, 09/06/2021 mammogram, and 07/09/2019 mammogram - [facility]. There are scattered areas of fibroglandular density in both breasts (category b / 25%-50% glandular tissue). Current study was also evaluated with a Computer Aided Detection (CAD) system. No significant masses, calcifications, or other findings are seen in either breast. There has been no significant interval change. IMPRESSION: NEGATIVE There is no mammographic evidence of malignancy. A 1 year screening mammogram is recommended. Based on the Tyrer Cuzick model (a risk assessment model) the patient's lifetime risk is 5.0% and her 10 year risk is 3.0%. According to the ACR, ACS, and NCCN guidelines, an annual breast MRI exam along with mammogram is recommended if the patient's lifetime risk is 20% or greater. This exam was interpreted at Station ID: [id number]. NOTE: For mammograms, a report in lay terms will be sent to the patient. Approximately 15% of breast malignancies will not be visualized mammographically. In the management of a palpable breast mass, a negative mammogram must not discourage biopsy of a clinically suspicious lesion. Electronically Signed By: Boo bond/em:11/10/2023 08:31:39 letter sent: Normal Exam ACR BI-RADS Category 1: Negative 3341F
== END ==
LOC: MAMMO 13:03
PROVIDERS: PCP Family Medicine; Referring Provider Family Medicine; Visit Provider Family Medicine
DX: Z12.31 Encounter for screening mammogram for malignant neoplasm of breast (principal); R92.323 Mammographic fibroglandular density, bilateral breasts
CPT/HCPCS: 77063; 77067

== ENCOUNTER → 2024-12-11 14:24 | Outpatient (CLI) | payer MEDICARE, OTHER, SELFPAY ==
[2019-07-29 13:32] VITALS: BMI 26.1
--- NOTE | 2024-12-11 14:25 | DI.MG.S_ITS ---
BILATERAL DIGITAL SCREENING MAMMOGRAM 3D/2D WITH CAD: 12/11/2024 CLINICAL: Routine screening. Comparison is made to exams dated: 11/09/2023 mammogram, 10/30/2022 mammogram, and 09/06/2021 mammogram - [facility]. There are scattered areas of fibroglandular density (category b / 25%-50% glandular tissue). Current study was also evaluated with a Computer Aided Detection (CAD) system. No significant masses, calcifications, or other findings are seen in either breast. There has been no significant interval change. IMPRESSION: NEGATIVE There is no mammographic evidence of malignancy. A 1 year screening mammogram is recommended. Based on the Tyrer Cuzick model (a risk assessment model) the patient's lifetime risk is 4.8% and her 10 year risk is 3.0%. According to the ACR, ACS, and NCCN guidelines, an annual breast MRI exam along with mammogram is recommended if the patient's lifetime risk is 20% or greater. This exam was interpreted at Station ID: [id number]. NOTE: For mammograms, a report in lay terms will be sent to the patient. Approximately 15% of breast malignancies will not be visualized mammographically. In the management of a palpable breast mass, a negative mammogram must not discourage biopsy of a clinically suspicious lesion. Electronically Signed By: Boo bond/em:12/11/2024 19:04:23 letter sent: Normal Exam ACR BI-RADS Category 1: Negative
== END ==
PROVIDERS: PCP Family Medicine; Referring Provider Family Medicine; Visit Provider Family Medicine
DX: Z12.31 Encounter for screening mammogram for malignant neoplasm of breast (principal)
CPT/HCPCS: 77063; 77067